=== PATIENT | male | born 1965 | race Caucasian/White ===

== ENCOUNTER 2021-02-07 20:30 | Emergency (ER) | payer OTHER ==
[2021-02-07 21:24] LABS: HEMOGLOBIN 16.4 gm/dl (14.0-17.5); RED BLOOD COUNT 5.21 M/UL (4.20-5.50); WHITE BLOOD COUNT 8.5 K/UL (4.5-11.0)
[2021-02-07 21:50] LABS: BUN/CREATININE RATIO 17 (0-10)
== END 2021-02-08 02:30 | disposition home or self-care (01) ==
LOC: ER1 20:30
PROVIDERS: Nurse Practitioner
DX: K52.9 Noninfective gastroenteritis and colitis, unspecified (principal); I25.2 Old myocardial infarction; Z20.822 Contact with and (suspected) exposure to COVID-19
CPT/HCPCS: 80053; 85025; 96372; 99283; J0500; U0002

== ENCOUNTER 2021-02-13 21:25 | Emergency (ER) | payer OTHER ==
[2021-02-13] MEDS ORDERED: FLOXIN 0.3% OTIC5 ML AD (21:37)
[2021-02-13] MEDS ORDERED: IBUPROFEN600 MG PO (21:38)
== END 2021-02-13 21:45 | disposition home or self-care (01) ==
LOC: ER1 21:25
DX: H60.93 Unspecified otitis externa, bilateral (principal); F17.210 Nicotine dependence, cigarettes, uncomplicated; I51.9 Heart disease, unspecified; I25.2 Old myocardial infarction; Z88.0 Allergy status to penicillin; Z95.5 Presence of coronary angioplasty implant and graft
CPT/HCPCS: 99282

== ENCOUNTER 2021-02-27 11:00 | Emergency (ER) | payer OTHER ==
[~2021-02-27 11:00] MED LIST: FLOXIN 0.3% OTIC5 ML AD; IBUPROFEN600 MG PO
[2021-02-27 12:08] LABS: HEMOGLOBIN 15.9 gm/dl (14.0-17.5); RED BLOOD COUNT 4.83 M/UL (4.20-5.50)
[2021-02-27 12:25] LABS: BUN/CREATININE RATIO 12 (0-10)
[2021-02-27] MEDS ORDERED: BROMFED DM COU473 ML PO (13:51)
== END 2021-02-27 14:13 | disposition home or self-care (01) ==
LOC: ER1 11:00
PROVIDERS: Nurse Practitioner
DX: J06.9 Acute upper respiratory infection, unspecified (principal); I11.9 Hypertensive heart disease without heart failure; E78.00 Pure hypercholesterolemia, unspecified; F17.210 Nicotine dependence, cigarettes, uncomplicated; Z88.0 Allergy status to penicillin; Z95.5 Presence of coronary angioplasty implant and graft; Z20.822 Contact with and (suspected) exposure to COVID-19
CPT/HCPCS: 71045; 80048; 85025; 99283; U0002